=== PATIENT | female | born 2005 | race African-American/Black ===

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

== ENCOUNTER 2024-01-23 14:27 | Outpatient (CLI) | payer OTHER ==
[2024-01-23 15:10] LABS: #Basophils 0.06 10x3/uL (0.0-0.2); #Eosinophils 0.29 10x3/uL (0.0-0.5); #Monocytes 0.84 10x3/uL (0.0-1.1); #Neutrophils 6.68 10x3/uL (1.5-8.4); %Basophils 0.5 % (0.0-2.0); %Eosinophils 2.4 % (0.0-6.0); %Lymphocytes 33.8 % (18.0-47.0); %Monocytes 6.9 % (0.0-10.0); %Neutrophils 54.7 % (40.0-75.0); Hematocrit 38.2 % (34.9-44.5); Hemoglobin 11.9 g/dL (12.0-15.5); Mean Corpuscular HGB CONC 31.2 g/dL (32.0-36.0); Mean Corpuscular Hemoglobin 23.5 pg (27.0-33.0); Mean Corpuscular Volume 75.5 fL (81.6-98.3); Platelet Count 675 10x3/uL (150-450); RBC Distribution Width 14.9 % (11.5-14.5); Red Blood Cell (RBC) Count 5.06 10x6/uL (3.90-5.03); White Blood Cell (WBC) Count 12.2 10x3/uL (3.5-10.5)
[2024-01-23 15:23] LABS: Anion Gap 14 mmol/L (10-20); BUN (Urea Nitrogen) 11 mg/dL (8.4-21.0); Calc. Creatinine Clearance 0 mL/min (70-130); Calcium 9.8 mg/dL (7.8-10.44); Carbon Dioxide 25 mmol/L (22-29); Chloride 102 mmol/L (98-107); Estimated GFR 90; Glucose 246 mg/dL (70-105); Potassium 3.7 mmol/L (3.5-5.1); Sodium 137 mmol/L (136-145)
[2024-01-23 15:30] LABS: BHCG - Serum Negative (NEGATIVE); Pregs Control Background? CLEAR/WHITE (CLR/WHITE); Pregs Control Bar Appear? YES (CONTROL BAR)
== END 2024-01-23 14:28 | disposition home or self-care (01) ==
LOC: CSHLAB 14:27
PROVIDERS: ATTEND Surgery
DX: Z01.812 Encounter for preprocedural laboratory examination (principal); S40.852A Superficial foreign body of left upper arm, initial encounter
CPT/HCPCS: 80048; 84703; 85025

== ENCOUNTER 2024-01-25 08:13 | Day surgery (SDC) | payer OTHER ==
[2024-01-23 14:56] VITALS: BMI 31.6
[2024-01-25] MEDS ORDERED: Lidocaine 2% PF 5 ML VIAL ONE (10:14)
[2024-01-25] MEDS ORDERED: Bupivacaine HCl 0.5%/Epinephrine 1:200,000/PF 30 ml Vial ONE (10:14)
[2024-01-25] MEDS ORDERED: PROPOFOL 20 ML ONE ×2 (10:16→10:57)
[2024-01-25] MEDS ORDERED: Lidocaine 1% PF 5 ML VIAL ONE (10:16)
[2024-01-25] MEDS ORDERED: fentaNYL 50 mcg/mL 1 mL Vial ONE ×2 (10:17→10:59)
[2024-01-25] MEDS ORDERED: CEFAZOLIN 2 GM VIAL ONE (10:36)
[2024-01-25] MEDS ORDERED: Dexamethasone 4 mg/ml Vial ONE (10:58)
[2024-01-25] MEDS ORDERED: Ondansetron PF 4 MG/2 ML Vial ONE (10:58)
== END 2024-01-25 12:27 | disposition home or self-care (01) ==
LOC: CSHSDC 08:13
PROVIDERS: ATTEND Surgery
PROC: 0JCH0ZZ Extirpation of Matter from Left Lower Arm Subcutaneous Tissue and Fascia, Open Approach (ICD-10-PCS; principal; 2024-01-25)
DX: M79.5 Residual foreign body in soft tissue (principal); Z79.899 Other long term (current) drug therapy
CPT/HCPCS: 88300; J1100; J2405; J2704; J3010

== ENCOUNTER 2025-02-27 10:45 | Emergency (ER) | payer OTHER | END 2025-02-27 11:31 | disposition home or self-care (01) | LOC: CSHERS 10:45 | DX: H10.9 Unspecified conjunctivitis (principal); E11.9 Type 2 diabetes mellitus without complications; Z87.891 Personal history of nicotine dependence | CPT/HCPCS: 99283 ==

== ENCOUNTER 2025-03-13 07:32 | Emergency (ER) | payer OTHER ==
[2025-03-13] MEDS ORDERED: metroNIDAZOLE 500 MG TAB ONE (08:55)
[2025-03-13] MEDS ORDERED: Azithromycin 250 MG TAB ONE (08:55)
== END 2025-03-13 09:10 | disposition home or self-care (01) ==
LOC: CSHERS 07:32
DX: R11.2 Nausea with vomiting, unspecified (principal); E11.9 Type 2 diabetes mellitus without complications; Z87.891 Personal history of nicotine dependence; A59.01 Trichomonal vulvovaginitis; A60.00 Herpesviral infection of urogenital system, unspecified; F41.1 Generalized anxiety disorder
CPT/HCPCS: 99283; J0696; Q0162; Q0169